=== PATIENT | female | born 1955 | race Caucasian/White ===

== ENCOUNTER 2016-06-24 00:01 | Outpatient (POV) | END 2016-06-24 00:02 | LOC: OUTPT 00:01 | PROVIDERS: ATTEND Otolaryngology | DX: H91.90 Unspecified hearing loss, unspecified ear (principal) | CPT/HCPCS: 92557 ==

== ENCOUNTER 2016-10-16 12:20 | Outpatient (CLI) ==
[2016-10-16 12:56] LABS: CREATININE 0.86 mg/dL (0.60-1.30)
--- NOTE | 2016-10-17 10:38 | MRI ---
EXAM: Brain and IAC MRI with and without contrast. HISTORY: Hearing loss right ear. Rule out acoustic neuroma. 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 COMPARISON: Head CT 04/22/2016, head CT 12/05/[address] 10/27/2008. TECHNIQUE: Multiplanar, multisequence MR images were acquired of the brain with thin sections throu gh the internal auditory canals before and after administration of intravenous contrast. FINDINGS: The midline structures are central and the craniocervical junction is unremarkable. The ventricles and sulci are normal in size and configuration. There are no abnormal extra-axial fluid collections. The brain parenchyma has no diffusion restriction to suggest acute hypoperfusion or infarction. Sma ll T2 hyperintensities are present in the supratentorial white matter, abdulkadir and left middle cerebell ar peduncle. This includes T2 hyperintensities in both anterior temporal lobes. These findings are compatible with mild leukomalacia. After administration of contrast, the brain parenchyma demonstr ates no enhancing lesions. The corpus callosum is normal in configuration. The pituitary gland is normal in size and has homogeneous contrast enhancement. The infundibulum is midline. There are no intraorbital masses. Paranasal sinuses are unremarkable. There are postsurgical changes of a left canal down mastoidecto my. There is a focal area of discontinuity in the tegmen tympani. This is covered by enhancing gran ulation tissue. There is mild enhancing mucosa or granulation tissue along the margins of the resec tion cavity. No abnormal enhancement is present in the dura of the left middle cranial fossa and th ere is no abnormal enhancement in the left internal auditory canals or labyrinthine structures. Ther e is opacification of a mildly enlarged left posterior mastoid air cell unchanged from prior studies . Mucosal thickening and fluid opacifies a moderately extensive number of the right mastoid air cells and there are thickened sclerotic mastoid septa. These findings have progressed compared to the rec ent head CT and are consistent with chronic right mastoid disease. There is no abnormal contrast en hancement in the internal auditory canals or labyrinthine structures. There is no vascular progressi on of the seventh and eighth cranial nerve complexes at the root entry zones. There is intermediate T1 and T2 signal in the left internal carotid artery petrous and cavernous seg ments to the supraclinoid segment suspicious for a high-grade stenosis or occlusion of the left venegas tid artery in the neck. A small flow void is identified in the left internal carotid artery in the region of the left ophthalmic artery that may represent retrograde filling and the supraclinoid left internal carotid artery is small and gradually enlarges to the bifurcation. The left posterior com municating artery is present. Flow voids are present in the left anterior and middle cerebral arter ies. The left anterior cerebral artery A1 segment is mildly hypoplastic. Both A2 segments are of n ormal caliber and both middle cerebral arteries are unremarkable. The anterior communicating artery is present. There is a dominant right posterior communicating artery. Flow voids are present in t he vertebral arteries, basilar artery and both posterior cerebral arteries and superior cerebellar a rteries. Dural venous sinuses are patent. The superior sagittal sinus preferentially drains into the right tr ansverse dural sinus, sigmoid sinus and internal jugular vein which are dominant to the left. IMPRESSION: 1. Moderately extensive chronic right mastoiditis. This has mildly progressed compared to the rece nt head CT from 04/22/2016. 2. Postsurgical changes of a left canal down mastoidectomy with enhancing granulation tissue along the margins of the surgical bed. 3. No evidence of vestibular schwannoma. 4. Mild chronic ischemic small vessel disease. No acute cerebral infarct. 5. Unexpected result: Findings suspicious for a high-grade stenosis or occlusion of the left carot id artery in the neck which may be chronic with collateral filling from the left posterior communica ting artery and anterior communicating artery and possible retrograde filling from the left ophthalm ic artery. Neck and ambler of Mehta CTA or MRA would be helpful to better define the anatomy.
== END 2016-10-16 12:21 | disposition home or self-care (01) ==
LOC: RAD 12:20
PROVIDERS: ATTEND Specialist
DX: H93.293 Other abnormal auditory perceptions, bilateral (principal)
CPT/HCPCS: 36415; 82565

== ENCOUNTER 2016-10-20 13:24 | Outpatient (CLI) ==
--- NOTE | 2016-10-20 14:35 | US ---
EXAM: Ultrasound bilateral carotid duplex HISTORY: Left carotid occlusion on MRI COMPARISON: MRI head 10/16/2016 TECHNIQUE: Sonographic and color Doppler evaluation of the carotids were performed. FINDINGS: The right carotid is patent in appearance with moderate atherosclerotic plaque visualized. The right ICA peak systolic velocity measures 130 m/sec which is elevated. The ICA / CCA peak systolic velocity ratio is 1.7 and ICA end-diastolic velocity is 60 m/sec. The left ICA is occluded. There is atherosclerotic disease at the carotid bulb. Vertebral arteries demonstrate antegrade flow bilaterally. IMPRESSION: 1. Left ICA occlusion consistent with MRI. 2. Moderate atherosclerotic disease of the right ICA with elevated velocities suggesting moderate, 50 - 69% stenosis.
== END 2016-10-20 13:25 | disposition home or self-care (01) ==
LOC: RAD 13:24
PROVIDERS: ATTEND Emergency Medicine
DX: I65.22 Occlusion and stenosis of left carotid artery (principal)

== ENCOUNTER 2016-11-12 06:27 | Outpatient (CLI) ==
--- NOTE | 2016-11-12 12:10 | ECHO2D ---
Date of Exam: 11/12/16 Ordering Physician: CARLA STEVE Reason for Echo: HYPERTENSION, SEVERE DYSLIPIDEMIA, SOB M-Mode Normal Adult Results LV Dimensions Normal Adult Results AoV Opening excursions >1.6 >1.6 LVEDD-base- 3.5-5.8 3.6 Ao root dimensions 2.0-3.7 2.9 LVESD-base- 3.1-4.6 L. Atrium dimensions 1.9-3.8 2.7 Post. Wall thickness 0.8-1.1 1.0 IV septum (thickness) 0.7-1.2 1.0 Post. Wall excursion 0.72-1.3 NORMAL Septal motion NORMAL Systolic motion R. Ventricular cavity 1.5-2.0 NORMAL LVEF 60% 59% Paradoxical septal wall motion NORMAL 2-D : NORMAL LEFT ATRIAL AND LEFT VENTRICLE CAVITIES--NORMAL LEFT VENTRICULAR CONTRACTILITY--MILD PERICARDIAL EFFUSION--NORMAL VALVES--NO THROMBUS M-MODE: MV: NORMAL AV: NORMAL TV: NORMAL PV: CHAMBER SIZE: NORMAL WALL MOTION: NORMAL PERICARDIUM: MILD PERICARDIAL EFFUSION INTERPRETATION: 1. NORMAL LEFT VENTRICULAR CONTRACTILITY 2. NORMAL VALVES 3. MILD PERICARDIAL EFFUSION MTDD
== END 2016-11-12 06:28 | disposition home or self-care (01) ==
LOC: CAR 06:27
PROVIDERS: ATTEND Internal Medicine
DX: R06.02 Shortness of breath (principal); I10 Essential (primary) hypertension; E78.5 Hyperlipidemia, unspecified

== ENCOUNTER 2016-11-13 06:23 | Outpatient (CLI) ==
[2016-11-13] MEDS ORDERED: ATROPINE SULFATE PFS ONE (07:01)
[2016-11-13] MEDS: DOBUTAMINE 250 ML IV ONE (07:18)
--- NOTE | 2016-11-16 12:26 | DOBSTECHO ---
Ordering Physician: CARLA STEVE Date of Test: 11/13/16 Reason for Examination: SOB, HYPERTENSION, DYSLIPIDEMIA Current Medications: CRESTOR, BABY ASA Height: 62" Weight: 157 LBS Target Heart Rate: 136/160 ST Segment Stage Time HR BPM BP mmhg Rhythm +/- Up Down Comments/Symptoms Control Sitting 92 130/78 SR X NONE Dobutamine 250mg/D5W 5cmg/KG/mn 10cmg/KG/mn 3" 129 125/70 SR X NONE 15cmg/KG/mn :32 144 120/70 SR X NONE 20cmg/KG/mn 25cmg/KG/mn 30cmg/KG/mn 35cmg/KG/mn 40cmg/KG/mn Time: 5" HR B/P Time: 8" HR B/P Time: HR B/P Recovery 115 120/72 Recovery 98 Recovery Total Time: 3:32 Maximum Heart Rate Reached: 144 Interpretation: 1. TEST NEGATIVE FOR ISCHEMIC ST-T WAVE CHANGES 2. NO CHEST PAIN OR DISCOMFORT 3. NORMAL LEFT VENTRICULAR CONTRACTILITY--RESTING AND WITH DOBUTAMINE INFUSION MTDD
--- NOTE | 2016-11-16 12:29 | ECHOSTRESS ---
Date of Exam: 11/13/16 Ordering Physician: CARLA STEVE Reason for Echo: SOB, HYPERTENSION, DYSLIPIDEMIA, DOBUTAMINE STRESS--NO ISCHEMIA M-Mode Normal Adult Results LV Dimensions Normal Adult Results AoV Opening excursions >1.6 LVEDD-base- 3.5-5.8 Ao root dimensions 2.0-3.7 LVESD-base- 3.1-4.6 L. Atrium dimensions 1.9-3.8 Post. Wall thickness 0.8-1.1 IV septum (thickness) 0.7-1.2 Post. Wall excursion 0.72-1.3 Septal motion Systolic motion R. Ventricular cavity 1.5-2.0 LVEF 60% Paradoxical septal wall motion 2-D: NORMAL LEFT VENTRICULAR CONTRACTILITY--RESTING AND DURING DOBUTAMINE INFUSION M-MODE: MV: AV: TV: PV: CHAMBER SIZE: WALL MOTION: NORMAL LEFT VENTRICULAR CONTRACTILITY--RESTING AND DURING DOBUTAMINE INFUSION PERICARDIUM: INTERPRETATION: 1. NORMAL LEFT VENTRICULAR CONTRACTILITY--RESTING AND DURING DOBUTAMINE INFUSION MTDD
== END 2016-11-13 06:24 | disposition home or self-care (01) ==
LOC: CAR 06:23
PROVIDERS: ATTEND Internal Medicine
DX: R06.02 Shortness of breath (principal); I10 Essential (primary) hypertension; E78.5 Hyperlipidemia, unspecified

== ENCOUNTER 2016-11-21 15:47 | Emergency (ER) ==
[2016-11-21 15:51] VITALS: TEMP 99.1; BMI 29.6
[2016-11-21 16:44] LABS: BASOPHILS % (AUTO) 0.5 % (0.0-3.0); EOSINOPHILS # (AUTO) 0.2 K/ul (0.0-0.7); EOSINOPHILS % (AUTO) 2.7 % (0.0-7.0); HEMATOCRIT 33.7 % (37.0-47.0); HEMOGLOBIN 10.9 g/dl (12.0-16.0); IMMATURE GRANULOCYTE % (AUTO) 0.8 % (0.0-5.0); LYMPHOCYTES # (AUTO) 2.1 K/uL (0.60-3.4); MEAN CORPUSCULAR HEMOGLOBIN 27.4 pg (27.0-31.0); MEAN CORPUSCULAR HGB CONC 32.3 (31.8-35.4); MEAN CORPUSCULAR VOLUME 84.7 fl (81.0-99.0); MONOCYTES # (AUTO) 0.9 K/uL (0.4-2.0); NEUTROPHILS # (AUTO) 5.2 K/ul (2.0-6.9); PLATELET COUNT 322 10^3/uL (140-440); RED BLOOD COUNT 3.98 10^6/ul (4.20-5.40); WHITE BLOOD COUNT 8.58 K/ul (4.6-10.2)
[2016-11-21 16:46] LABS: ABG PH 7.456 (7.35-7.45)
[2016-11-21 16:47] LABS: ABG BASE EXCESS 1 (-2.0-2.0); ABG HCO3 24.8 (22.0-26.0); ABG PCO2 35.2 mmHg (35-45); ABG TCO2 26 (22.0-28.0)
--- NOTE | 2016-11-21 17:02 | CT ---
EXAM: CT head without contrast HISTORY: Headache COMPARISON: CT head 04/22/2016 and MRI brain 10/16/2016 TECHNIQUE: Serial axial images of the brain were obtained from the skull base to the vertex without IV contrast. FINDINGS: The ventricles, cisterns and sulci demonstrate generalized volume loss.. The thornton-white matter junction is maintained. There is scattered low attenuation throughout the periventricular wh ite matter.No midline shift or mass is identified. There is no abnormal intra or extra-axial fluid collection. The paranasal sinuses and right mastoid air cells are clear. There are surgical change s of the left mastoid air cells. The osseous calvarium is intact. There is atherosclerotic disease of the visualized vessels. IMPRESSION: 1. No acute intracranial abnormality or hemorrhage. 2. Chronic microangiopathy and generalized volume loss. 3. Surgical changes of the left mastoid air cells.
[2016-11-21 17:17] VITALS: BP 121/76
[2016-11-21 17:24] LABS: ALANINE AMINOTRANSFERASE 17 U/L (12-78); ALBUMIN/GLOBULIN RATIO 0.88; ALKALINE PHOSPHATASE 72 U/L (53-141); ANION GAP 12.8; ASPARTATE AMINO TRANSFERASE 16 U/L (15-37); BLOOD UREA NITROGEN 11 mg/dL (7-18); BUN/CREATININE RATIO 13.09; CALCIUM 9.2 mg/dL (8.2-10.2); CARBON DIOXIDE 24 mmol/L (23-31); CHLORIDE 109 mmol/L (98-107); CREATINE KINASE 51 U/L; CREATININE 0.84 mg/dL (0.60-1.30); GLUCOSE 101 mg/dL (82-115); POTASSIUM 3.8 mmol/L (3.5-5.10); SODIUM 142 mmol/L (136-145); TOTAL PROTEIN 6.4 g/dL (5.8-8.1)
--- NOTE | 2016-11-21 18:01 | ED.PDOC ---
General ED Provider: Dr. MYLES LOO Chief Complaint: Weakness Stated Complaint: WEAKNESS Time Seen by Physician: 16:00 (AOX3 NO NEURO DEFICITS NOTED BUT B/P SYSTOLIC WAS 90'S ON ARRIVAL ) Mode of Arrival: Wheelchair Information Source: Patient, Family Exam Limitations: No limitations Primary Care Provider: CARLA STEVE Nursing and Triage Documentation Reviewed and Agree: Yes (SEEN WITH NURSES AND E//D TECH ) Neurological Complaint Exam - Weakness Complaint/Exam Last Known Well: 1 DAY Onset: Gradual Duration: 1 DAY Symptoms Are: Still present Timing: Constant Episodes Lasting: Hours Initial Severity: Mild Current Severity: Mild Character: Reports: Lightheaded, Weak Aggravating: Reports: None Alleviating: Reports: None Associated Signs and Symptoms: Denies: Nausea, Vomiting, Diaphoresis, Tinnitus, Chest pain, Short of air, Palpitations, Unsteady gait, GI blood loss, Visual changes, Decreased oral intake, Change in medication, Change in diet, OTC meds, Loss of balance Review of Systems - Review Of Systems Constitutional: Reports: Malaise, Weakness Eyes: Reports: No symptoms Ears, Nose, Mouth, Throat: Reports: No symptoms Respiratory: Reports: No symptoms Cardiac: Reports: No symptoms GI: Reports: No symptoms : Reports: No symptoms Musculoskeletal: Reports: No symptoms Skin: Reports: No symptoms Neurological: Reports: Headache Endocrine: Reports: No symptoms Hematologic/Lymphatic: Reports: No symptoms All Other Systems: Reviewed and Negative Past Medical History - Past Medical History Previously Healthy: Yes Endocrine: Reports: Dyslipidemia Cardiovascular: Reports: None Respiratory: Reports: None Hematological: Reports: None Gastrointestinal: Reports: None Genitourinary: Reports: None Neuro/Psych: Reports: None Musculoskeletal: Reports: None Cancer: Reports: None Last Menstrual Period: n/a - Surgical History General Surgical History: Reports: None - Family History Family History: Reports: None - Social History Smoking Status: Never smoker Hx Substance Use: No Alcohol Screening: None Physical Exam - Physical Exam Appearance: Well-appearing, No pain distress, Well-nourished Eyes: NADIA, EOMI, Conjunctiva clear ENT: Ears normal, Nose normal, Oropharynx normal Respiratory: Airway patent, Breath sounds clear, Breath sounds equal, Respirations nonlabored Cardiovascular: RRR, Pulses normal, No rub, No murmur GI/: Soft, Nontender, No masses, Bowel sounds normal, No Organomegaly Musculoskeletal: Normal strength, ROM intact, No edema, No calf tenderness Skin: Warm, Dry, Normal color Neurological: Sensation intact, Motor intact, Reflexes intact, Cranial nerves intact, Alert, Oriented Psychiatric: Affect appropriate, Mood appropriate Interpretation - Radiology Interpretation Radiology Interpretation By: Radiologist Radiology Results: No acute changes - Cut Lace Machine Operator Rate: Normal Rhythm: Sinus Ectopy: None - EKG Interpretation Rate: Normal Rhythm: Sinus Ectopy: None Pinson: NL ST Segment: Normal Re-Evaluation - Re-Evaluation Time of Re-Evaluation: 17:45 Status: Improved Vital Signs Stable: Yes Pain Level: 0 Appearance: NAD Lungs: Clear Skin: Warm and Dry Neuro: Alert and Oriented X3 CV: RRR Critical Care Note - Critical Care Note Total Time (mins): 0 Course - Course Hematology/Chemistry: 11/21/16 16:40 11/21/16 16:40 Orders, Labs, Meds: Lab Review 11/21/16 11/21/16 16:15 16:40 WBC 8.58 RBC 3.98 L Hgb 10.9 L Hct 33.7 L MCV 84.7 MCH 27.4 MCHC 32.3 RDW Coeff of [place] 15.4 H Plt Count 322 Immature Gran % (Auto) 0.8 Neut % (Auto) 61.0 Lymph % (Auto) 24.0 [place] % (Auto) 11.0 H Eos % (Auto) 2.7 Baso % (Auto) 0.5 Immature Gran # (Auto) 0.1 Neut # 5.2 Lymph # 2.1 [place] # 0.9 Eos # 0.2 Baso # 0.0 Puncture Site Lbrach O2 Saturation 93.0 L ABG pH 7.456 H ABG pCO2 35.2 ABG pO2 64.0 L ABG HCO3 24.8 ABG Total CO2 26 ABG Base Excess 1 FiO2 % 21.0 Sodium 142 Potassium 3.8 Chloride 109 H Carbon Dioxide 24 Anion Gap 12.8 BUN 11 Creatinine 0.84 Estimated GFR (MDRD) 69.00 BUN/Creatinine Ratio 13.09 Glucose 101 Lactic Acid 6.7 Calcium 9.2 Total Bilirubin 0.40 AST 16 ALT 17 Alkaline Phosphatase 72 Total Creatine Kinase 51 Troponin I < 0.0100 Total Protein 6.4 Albumin 3.0 L Globulin 3.4 Albumin/Globulin Ratio 0.88 Procalcitonin < 0.05 TSH 2.490 Free T4 1.08 Orders Category Date Time Status ABG DRAW REQUEST Stat CARDIO 11/21/16 16:15 Completed EKG-(ED ONLY) Stat CARDIO 11/21/16 16:14 Completed ABG Stat LAB 11/21/16 16:15 Completed BLOOD CULTURE Stat LAB 11/21/16 16:40 Received CBC W/ AUTO DIFF Stat LAB 11/21/16 16:40 Completed COMPREHENSIVE METABOLIC PANEL Stat LAB 11/21/16 16:40 Completed CREATINE KINASE Stat LAB 11/21/16 16:40 Completed FREE T4 (FREE THYROXINE) Stat LAB 11/21/16 16:40 Completed LACTIC ACID Stat LAB 11/21/16 16:40 Completed PROCALCITONIN Stat LAB 11/21/16 16:40 Completed THYROID STIMULATING HORMONE Stat LAB 11/21/16 16:40 Completed TROPONIN I Stat LAB 11/21/16 16:40 Completed URINALYSIS C & S IF INDICATED Stat LAB 11/21/16 16:[address] HEAD W/O CONTRAST Stat RADS 11/21/16 16:18 Completed Vital Signs: Temp Pulse Resp BP Pulse Ox 11/21/16 17:17 121/76 11/21/16 16:19 129/80 11/21/16 15:47 99.1 F 101 H 16 93/64 96 Departure - Departure Time of Disposition: 18:01 (REPEAT NEURO AT D/C WAS WNL RN PRESENT AT BEDSIDE ) Disposition: HOME SELF-CARE Discharge Problem: Weakness generalized Instructions: Weakness (ED) Condition: Good Pt referred to PMD for follow-up: No Additional Instructions: Please call your Family Physician as soon as possible to schedule a follow-up appointment. Allergies/Adverse Reactions: Allergies codeine Allergy (Intermediate, Verified 11/21/16 15:51) hallucinate Home Medications: Ambulatory Orders Aspirin [Aspir-Low] 81 mg PO DAILY 11/21/16 Rosuvastatin Calcium [Crestor] 20 mg PO DAILY 11/21/16
[2016-11-21 18:09] LABS: ADD URINE MICROSCOPIC NO; BILIRUBIN,URINE Negative (NEGATIVE); KETONES,URINE Negative (NEGATIVE); LEUKOCYTE ESTERASE ,URINE Negative (NEGATIVE); NITRITE,URINE Negative (NEGATIVE); PH,URINE 5.5 (5-9); PROTEIN,URINE Negative (NEGATIVE); URINE, BLOOD Negative (NEGATIVE)
== END 2016-11-21 18:16 | disposition home or self-care (01) ==
LOC: ED 15:47
DX: R53.1 Weakness (principal); R42 Dizziness and giddiness; E78.5 Hyperlipidemia, unspecified
CPT/HCPCS: 36415; 80053; 81001; 82550; 82803; 83605; 84145; 84439; 84443; 84484; 85025; 87040; 93005; 93010; 99283

== ENCOUNTER → 2017-01-08 | Outpatient (POV) | LOC: OUTPT 00:01 | PROVIDERS: ATTEND Otolaryngology | DX: H91.90 Unspecified hearing loss, unspecified ear (principal) ==

== ENCOUNTER 2017-06-22 14:21 | Emergency (ER) ==
[2017-06-22 14:31] VITALS: TEMP 98.1; BMI 28.9
--- NOTE | 2017-06-22 20:39 | ED.PDOC ---
General ED Provider: Dr. GISSELLE MOSHER Stated Complaint: Experiencing nose bleed since this afternoon Time Seen by Physician: 18:00 Mode of Arrival: Walk-In Information Source: Patient, Family Primary Care Provider: CARLA STEVE Nursing and Triage Documentation Reviewed and Agree: Yes Reviewed sepsis parameters & appropriate labs ordered?: Yes System Inflammatory Response Syndrome: Not Applicable Sepsis Protocol: For patient's 13 years and over: Temp is 96.8 and below OR 101 and greater Pulse >90 BPM Resp >20/minute Acutely Altered Mental Status Are patient's symptoms suggestive of a new infection, such as: -Pneumonia -Skin, Soft Tissue -Endocarditis -UTI -Bone, Joint Infection -Implantable Device -Acute Abdominal Infection -Wound Infection -Meningitis -Blood Stream Catheter Infection -Unknown System Inflammatory Response Syndrome: Not Applicable <GISSELLE MOSHER - Last Filed: 06/22/17 20:36> ED Provider: Dr. ANDREW BASS Primary Care Provider: CARLA STEVE Sepsis Protocol: For patient's 13 years and over: Temp is 96.8 and below OR 101 and greater Pulse >90 BPM Resp >20/minute Acutely Altered Mental Status Are patient's symptoms suggestive of a new infection, such as: -Pneumonia -Skin, Soft Tissue -Endocarditis -UTI -Bone, Joint Infection -Implantable Device -Acute Abdominal Infection -Wound Infection -Meningitis -Blood Stream Catheter Infection -Unknown <ADNREW BASS - Last Filed: 06/22/17 21:51> Chief Complaint: Nosebleed EENT Complaint Exam - Nasal Complaint/Exam Symptoms Are: Still present Timing: Intermittent Initial Severity: Moderate Current Severity: Mild Location: Left Character: Light bleeding Alleviating: Reports: Pressure, Position Associated Signs and Symptoms: Denies: Nasal congestion, Bruising, Nasal discharge, Foreign body Related History: Reports: Similar episode Nasal Surgical History: Reports: None Bleeding Present At: Left nostril Foreign Body Present: Yes Oropharynx Findings: Clots <GISSELLE MOSHER - Last Filed: 06/22/17 20:36> Review of Systems - Review Of Systems Constitutional: Reports: No symptoms Eyes: Reports: No symptoms Ears, Nose, Mouth, Throat: Reports: Nose discharge, Epistaxis Respiratory: Reports: No symptoms Cardiac: Reports: No symptoms GI: Reports: No symptoms : Reports: No symptoms Musculoskeletal: Reports: No symptoms Skin: Reports: No symptoms Neurological: Reports: No symptoms Endocrine: Reports: No symptoms Hematologic/Lymphatic: Reports: No symptoms All Other Systems: Reviewed and Negative <GISSELLE MOSHER - Last Filed: 06/22/17 20:36> Past Medical History - Past Medical History Previously Healthy: Yes Endocrine: Reports: Dyslipidemia Cardiovascular: Reports: None Respiratory: Reports: None Hematological: Reports: None Gastrointestinal: Reports: None Genitourinary: Reports: None Neuro/Psych: Reports: None Musculoskeletal: Reports: None Cancer: Reports: None Last Menstrual Period: menopause - Surgical History General Surgical History: Reports: None - Family History Family History: Reports: None - Social History Smoking Status: Never smoker Hx Substance Use: No Alcohol Screening: None <GISSELLE MOSHER - Last Filed: 06/22/17 20:36> Physical Exam - Physical Exam Appearance: Well-appearing (Turning case to Dr Bass at 2100 hrs for additional treatment) Ill-appearing: None Pain Distress: None Eyes: NADIA, EOMI, Conjunctiva clear ENT: Ears normal, Rhinorrhea Neck: Supple Respiratory: Airway patent, Breath sounds clear, Breath sounds diminished, Respirations nonlabored Cardiovascular: RRR, Pulses normal GI/: Soft, Nontender Musculoskeletal: Normal strength Skin: Warm, Dry Neurological: Sensation intact <GISSELLE MOSHER - Last Filed: 06/22/17 20:36> Procedures - Nasal Packing/Cautery Indications: Present: Anterior epistaxis Packing/Cautery Procedure: Left Medications Used: Yes: Other (Celox) Hemostasis Obtained: Yes (Was removed after 1 hour-had recurrent epistaxsis) <GISSELLE MOSHER - Last Filed: 06/22/17 20:36> - Nasal Packing/Cautery Packing/Cautery Procedure: Rhino rocket Suction Used: Yes Pressure Used to Control Bleeding: Yes Medications Used: Yes: Afrin <ANDREW BASS - Last Filed: 06/22/17 21:51> Critical Care Note - Critical Care Note Total Time (mins): 0 <GISSELLE MOSHER - Last Filed: 06/22/17 20:36> Course - Course Vital Signs: Temp Pulse Resp BP Pulse Ox 06/22/17 14:21 98.1 F 103 H 20 111/84 0 L <GISSELLE MOSHER - Last Filed: 06/22/17 20:36> - Course Hematology/Chemistry: 06/22/17 21:10 Orders, Labs, Meds: Lab Review 06/22/17 21:10 WBC 11.35 H RBC 4.98 Hgb 13.8 Hct 41.7 MCV 83.7 MCH 27.7 MCHC 33.1 RDW Coeff of Yanni 14.4 Plt Count 212 Immature Gran % (Auto) 0.4 Neut % (Auto) 69.9 Lymph % (Auto) 22.2 [place] % (Auto) 5.7 Eos % (Auto) 1.5 Baso % (Auto) 0.3 Immature Gran # (Auto) 0.0 Neut # 7.9 H Lymph # 2.5 [place] # 0.7 Eos # 0.2 Baso # 0.0 Orders Category Date Time Status CBC W/ AUTO DIFF Stat LAB 06/22/17 21:10 Completed PT WITH INR Stat LAB 06/22/17 21:10 Received PTT [PARTIAL THROMBOPLASTIN TIME] Stat LAB 06/22/17 21:10 Received Silver Nitrate Applicator MEDS 06/22/17 21:29 Discontinued 1 each TP .STK-MED ONE Vital Signs: Temp Pulse Resp BP Pulse Ox 06/22/17 14:21 98.1 F 103 H 20 111/84 0 L <ANDREW BASS - Last Filed: 06/22/17 21:51> Departure <GISSELLE MOSHER - Last Filed: 06/22/17 20:36> - Departure Time of Disposition: 21:47 Pt referred to PMD for follow-up: Yes Transfer Form Completed: Yes Disposition Discussed With: Patient <ANDREW BASS - Last Filed: 06/22/17 21:51> - Departure Disposition: HOME SELF-CARE Discharge Problem: Epistaxis Instructions: Nosebleed (ED) Condition: Stable Additional Instructions: Follow up with PCP in 3 days to have Nasal Rocket Removed Take Antibiotics as prescribed. Prescriptions: Amoxicillin/Potassium Clav [Augmentin 875-125 mg Tab] 1 tab PO Q12HR #14 tablet Allergies/Adverse Reactions: Allergies codeine Allergy (Intermediate, Verified 06/22/17 14:33) hallucinate Home Medications: Ambulatory Orders Aspirin [Aspir-Low] 81 mg PO DAILY 11/21/16 Rosuvastatin Calcium [Crestor] 20 mg PO DAILY 11/21/16 Clopidogrel Bisulfate [Clopidogrel] 75 mg PO DAILY 05/25/17 Amoxicillin/Potassium Clav [Augmentin 875-125 mg Tab] 1 tab PO Q12HR #14 tablet 06/22/17
[2017-06-22] MEDS ORDERED: SILVER NITRATE APPLICATOR TP ONE (21:29)
[2017-06-22] MEDS ORDERED: AFRIN NASAL SPRAY NAS STA (21:52)
[2017-06-22 22:01] VITALS: BP 140/76
== END 2017-06-22 22:01 | disposition home or self-care (01) ==
LOC: ED 14:21
DX: R04.0 Epistaxis (principal)
CPT/HCPCS: 36415; 85025; 85610; 85730; 99282

== ENCOUNTER 2017-06-24 11:53 | Emergency (ER) ==
[2017-06-24 11:58] VITALS: BP 138/84; TEMP 97.4; BMI 28.3
--- NOTE | 2017-06-24 12:52 | ED.PDOC ---
General ED Provider: Dr. EUGENIA GALE Chief Complaint: Nosebleed Stated Complaint: Nosebleed Time Seen by Physician: 12:15 Mode of Arrival: Walk-In Information Source: Patient Primary Care Provider: CARLA STEVE Nursing and Triage Documentation Reviewed and Agree: Yes Reviewed sepsis parameters & appropriate labs ordered?: Yes System Inflammatory Response Syndrome: Not Applicable Sepsis Protocol: For patient's 13 years and over: Temp is 96.8 and below OR 101 and greater Pulse >90 BPM Resp >20/minute Acutely Altered Mental Status Are patient's symptoms suggestive of a new infection, such as: -Pneumonia -Skin, Soft Tissue -Endocarditis -UTI -Bone, Joint Infection -Implantable Device -Acute Abdominal Infection -Wound Infection -Meningitis -Blood Stream Catheter Infection -Unknown Review of Systems - Review Of Systems Constitutional: Reports: No symptoms Ears, Nose, Mouth, Throat: Reports: Epistaxis All Other Systems: Reviewed and Negative Past Medical History - Past Medical History Previously Healthy: Yes Endocrine: Reports: Dyslipidemia Cardiovascular: Reports: None Respiratory: Reports: None Hematological: Reports: None Gastrointestinal: Reports: None Genitourinary: Reports: None Neuro/Psych: Reports: None Musculoskeletal: Reports: None Cancer: Reports: None Last Menstrual Period: N/A - Surgical History General Surgical History: Reports: None - Family History Family History: Reports: None - Social History Smoking Status: Never smoker Hx Substance Use: No Alcohol Screening: None - Immunizations Tetanus Shot up to Date: No Physical Exam - Physical Exam Appearance: Well-appearing ENT: Epistaxis (Ward rocket in place; no posterior phanynx blood visualized by me or 2X by RN) Neck: Supple Respiratory: Airway patent, Breath sounds clear Skin: Warm, Dry, Normal color Neurological: Sensation intact, Motor intact, Alert, Oriented Psychiatric: Affect appropriate, Mood appropriate Critical Care Note - Critical Care Note Total Time (mins): 10 Course - Course Vital Signs: Temp Pulse Resp BP Pulse Ox 06/24/17 11:56 97.4 F L 89 20 138/84 98 Departure - Departure Time of Disposition: 12:50 Disposition: HOME SELF-CARE Discharge Problem: Epistaxis Instructions: Nosebleed (ED) Condition: Stable Pt referred to PMD for follow-up: Yes (Follow up tomorrow with primary care as planned) IPMP verified?: No (No narcotic prescribed) Additional Instructions: Keep nasal pack in place and follow up with Dr. Steve as instructed on wednesday evening. Do not blow your nose; continue to not take your blood thinner medications as per plan by Primary Care (which you discussed with me). Allergies/Adverse Reactions: Allergies codeine Allergy (Intermediate, Verified 06/22/17 14:33) hallucinate Home Medications: Ambulatory Orders Aspirin [Aspir-Low] 81 mg PO DAILY 11/21/16 Rosuvastatin Calcium [Crestor] 20 mg PO DAILY 11/21/16 Clopidogrel Bisulfate [Clopidogrel] 75 mg PO DAILY 05/25/17 Amoxicillin/Potassium Clav [Augmentin Es-600 Suspension] 600 mg PO BID #70 ml Disposition Discussed With: Patient
== END 2017-06-24 13:15 | disposition home or self-care (01) ==
LOC: ED 11:53
DX: R04.0 Epistaxis (principal); Z79.899 Other long term (current) drug therapy
CPT/HCPCS: 99282

== ENCOUNTER 2017-09-15 09:39 | Outpatient (POV) | END 2017-09-15 17:00 | LOC: OUTPT 09:39 | PROVIDERS: ATTEND Otolaryngology | DX: H91.90 Unspecified hearing loss, unspecified ear (principal) | CPT/HCPCS: 92557 ==

== ENCOUNTER 2017-10-09 09:02 | Emergency (ER) ==
[2017-10-09 09:08] VITALS: BP 119/77; TEMP 98.3; BMI 34.7
--- NOTE | 2017-10-09 09:21 | ED.PDOC ---
General ED Provider: Dr. GISSELLE MOSHER Chief Complaint: Chest Pain Stated Complaint: Chest and Upper abdomen discomfort. Patient indicates last evening after eattin she started to experience mid-epigastric and mid sternal chest pain which radiated through to her back. States she was up and down all evening eventually capable of getting relaxed enough to lay down in bed and sleep from 1 AM until this morning. She prepared to take her morining meds and after swallowing apple sauce and taking 1 pill she had recurrence or her symptoms, She now has constant pain since and experiencing sensation she needs to belch. Very anxious. Time Seen by Physician: 09:20 Mode of Arrival: Walk-In Information Source: Patient, Family Exam Limitations: No limitations Primary Care Provider: CARLA STEVE Nursing and Triage Documentation Reviewed and Agree: Yes Reviewed sepsis parameters & appropriate labs ordered?: Yes System Inflammatory Response Syndrome: Not Applicable Sepsis Protocol: For patient's 13 years and over: Temp is 96.8 and below OR 101 and greater Pulse >90 BPM Resp >20/minute Acutely Altered Mental Status Are patient's symptoms suggestive of a new infection, such as: -Pneumonia -Skin, Soft Tissue -Endocarditis -UTI -Bone, Joint Infection -Implantable Device -Acute Abdominal Infection -Wound Infection -Meningitis -Blood Stream Catheter Infection -Unknown System Inflammatory Response Syndrome: Not Applicable GI Complaint Exam - Abdominal Pain Complaint/Exam Onset: Sudden Duration: 12 hrs Symptoms Are: Still present Timing: Constant Initial Severity: Severe Current Severity: Moderate Location of Pain: Epigastric Character: Reports: Sharp, Aching, Burning Aggravating: Reports: Food, Position, Eating Alleviating: Reports: Rest Associated Signs and Symptoms: Reports: Diaphoresis, Nausea Related History: Denies: Similar episode AAA Risk Factors: Reports: None Ectopic Risk Factors: Reports: None Ovarian Torsion Risk Factors: Reports: None Surgical Obstruction Risk Factors: Reports: None Adnexal Exam: Present: Normal Findings Differential Diagnoses: Gastroenteritis, GB, PUD, Other (GERD/Esophageal spasm) Review of Systems - Review Of Systems Constitutional: Reports: No symptoms, Diaphoresis, Loss of appetite Eyes: Reports: No symptoms Ears, Nose, Mouth, Throat: Reports: No symptoms Respiratory: Reports: No symptoms Cardiac: Reports: No symptoms GI: Reports: Abdominal pain, Difficulty swallowing, Poor appetite, Poor fluid intake : Reports: No symptoms Musculoskeletal: Reports: No symptoms Skin: Reports: No symptoms Neurological: Reports: No symptoms Endocrine: Reports: No symptoms Hematologic/Lymphatic: Reports: No symptoms All Other Systems: Reviewed and Negative Past Medical History - Past Medical History Previously Healthy: Yes Endocrine: Reports: Dyslipidemia Cardiovascular: Reports: None Respiratory: Reports: None Hematological: Reports: None Gastrointestinal: Reports: None Genitourinary: Reports: None Neuro/Psych: Reports: None Musculoskeletal: Reports: None Cancer: Reports: None Last Menstrual Period: N/A - Surgical History General Surgical History: Reports: None - Family History Family History: Reports: None - Social History Smoking Status: Never smoker Hx Substance Use: No Alcohol Screening: None - Immunizations Tetanus Shot up to Date: Yes Physical Exam - Physical Exam Appearance: Ill-appearing, Obese Ill-appearing: Moderate Pain Distress: Moderate Eyes: NADIA, EOMI, Conjunctiva clear ENT: Ears normal, Oropharynx normal Respiratory: Airway patent, Breath sounds clear, Breath sounds equal Cardiovascular: RRR, Pulses normal, No rub, No murmur GI/: Soft, Bowel sounds normal, No Organomegaly, Tender (midepigastrium), Bowel sounds hypoactive Musculoskeletal: Normal strength, ROM intact, No edema, No calf tenderness Skin: Warm, Dry, Normal color Neurological: Sensation intact, Motor intact, Reflexes intact, Cranial nerves intact, Alert, Oriented Psychiatric: Affect appropriate, Mood appropriate Interpretation - Radiology Interpretation Radiology Interpretation By: Radiologist Radiology Results: Negative Exam Interpreted: CXR Critical Care Note - Critical Care Note Total Time (mins): 30 Course - Course Hematology/Chemistry: 10/09/17 10:00 10/09/17 10:00 Orders, Labs, Meds: Lab Review 10/09/17 10/09/17 10/09/17 10:00 10:00 10:00 WBC 12.95 H RBC 4.90 Hgb 13.0 Hct 41.2 MCV 84.1 MCH 26.5 L MCHC 31.6 L RDW Coeff of Yanni 13.7 Plt Count 200 Immature Gran % (Auto) 0.2 Neut % (Auto) 75.1 Lymph % (Auto) 16.7 [place] % (Auto) 5.3 Eos % (Auto) 2.2 Baso % (Auto) 0.5 Immature Gran # (Auto) 0.0 Neut # (Auto) 9.7 H Lymph # (Auto) 2.2 [place] # (Auto) 0.7 Eos # (Auto) 0.3 Baso # (Auto) 0.1 Sodium 144 Potassium 4.5 Chloride 106 Carbon Dioxide 29 Anion Gap 13.5 BUN 10 Creatinine 0.87 Estimated GFR (MDRD) 66.00 BUN/Creatinine Ratio 11.49 Glucose 103 Calcium 10.1 Total Bilirubin 0.3 AST 21 ALT 21 Alkaline Phosphatase 108 Troponin I < 0.0100 Total Protein 7.8 Albumin 3.7 Globulin 4.1 Albumin/Globulin Ratio 0.90 Orders Category Date Time Status EKG-(ED ONLY) Stat CARDIO 10/09/17 09:46 Completed CBC W/ AUTO DIFF Stat LAB 10/09/17 10:00 Completed CMP [COMPREHENSIVE METABOLIC PANEL] Stat LAB 10/09/17 10:00 Completed TROPONIN I Stat LAB 10/09/17 10:00 Completed Mag-Al Plus//Lidocaine [Gi Cocktail] MEDS 10/09/17 09:45 Discontinued 30 ml PO ONCE STA CHEST, 1V AP ONLY Stat RADS 10/09/17 09:46 Completed Medications Discontinued Medications Generic Name Dose Route Start Last Admin Trade Name Freq PRN Reason Stop Dose Admin Al Hydroxide/Mg Hydroxide 30 ml 10/09/17 09:45 10/09/17 10:08 Gi Cocktail PO 10/09/17 09:46 30 ml ONCE STA Administration Vital Signs: Temp Pulse Resp BP Pulse Ox 10/09/17 09:03 98.3 F 82 20 119/77 98 Departure - Departure Time of Disposition: 12:15 Disposition: HOME SELF-CARE Discharge Problem: Esophageal spasm, GERD (gastroesophageal reflux disease) Discharge Problem: (Ruled Out): GERD with apnea Instructions: Gastroesophageal Reflux Disease (ED), Esophageal Spasm (ED) Condition: Good Pt referred to PMD for follow-up: Yes IPMP verified?: No Additional Instructions: Take Mylanta 10 ml after each meal and bed time for relief of indigestion Begin Omperazole 20 ml twice daily Remain on soft , bland diet Prescriptions: Omeprazole [Prilosec] 20 mg PO BIDAC #60 capsule.dr Allergies/Adverse Reactions: Allergies codeine Allergy (Intermediate, Verified 10/09/17 09:08) hallucinate Home Medications: Ambulatory Orders Aspirin [Aspir-Low] 81 mg PO DAILY 11/21/16 Rosuvastatin Calcium [Crestor] 20 mg PO DAILY 11/21/16 Clopidogrel Bisulfate [Clopidogrel] 75 mg PO DAILY 05/25/17 Omeprazole [Prilosec] 20 mg PO BIDAC #60 capsule. 10/09/17 Disposition Discussed With: Patient, Family Time Seen by Provider: 10/09/17 09:20 Objective: Vitals: T=98.3 F, P=82, R=20, XI=813/77, SPO2=98 HEENT: [] Neck: [] Lungs: [] CVS: [] Abdomen: [] Extremities: [] Neurological: [] Skin: [] Lab/Tests/Diagnostic Imaging: [] Patient administered GI cocktail with complete resolution of her symptoms/Ready for discharge
[2017-10-09] MEDS ORDERED: GI COCKTAIL PO STA (09:45)
--- NOTE | 2017-10-09 10:26 | DI ---
EXAM: Single view of the chest. History: Chest pain. Comparison: Chest radiograph 03/27/2008 Findings: Heart size is within normal limits. No focal consolidation. Calcified granulomas again s een within the thorax. No appreciable pleural fluid and no pneumothorax. No acute osseous abnormali ties. Impression: No acute cardiopulmonary process. No change compared to the prior study.
== END 2017-10-09 12:34 | disposition home or self-care (01) ==
LOC: ED 09:02
DX: K22.4 Dyskinesia of esophagus (principal); K21.9 Gastro-esophageal reflux disease without esophagitis; R07.9 Chest pain, unspecified
CPT/HCPCS: 36415; 80053; 84484; 85025; 93005; 93010; 99284

== ENCOUNTER 2017-12-03 09:29 | Outpatient (CLI) ==
--- NOTE | 2017-12-03 15:31 | MRI ---
EXAM: Brain MRI with and without contrast. HISTORY: Ataxia. COMPARISON: Head CT 11/21/2016 and brain MRI 10/16/2016. TECHNIQUE: Multiplanar, multisequence MR images were acquired of the brain before and after administ ration of intravenous contrast. FINDINGS: The midline structures are central and the craniocervical junction is unremarkable. The v entricles and sulci are normal in size and configuration. There are no abnormal extra-axial fluid co llections. There is a small area of mild diffusion restriction with faint bright B 1000 and dark ADC signal and faint bright FLAIR signal in the right abdulkadir that measures 6 mm AP by 3.5 mm TX. This is consistent w ith a small area of late acute to subacute ischemia. Patchy T2 hyperintensities are present in the s upratentorial white matter including both anterior temporal lobes and the abdulkadir compatible mild leukom alacia unchanged from previously. There is no abnormal dark gradient echo signal. After administrat ion of gadolinium, no enhancing lesions are identified. The corpus callosum is normal in configurati on. The pituitary gland is normal in size with homogeneous contrast enhancement and the infundibulum is midline. There are no intraorbital masses. Minor hyperostosis frontalis interna is present. Minor scattered mucosal thickening is present in the ethmoid air cells that is within normal variation. There is mil d mucosal thickening and a small amount of fluid in a mild number of the right mastoid air cells whic h have thickened sclerotic septa compatible with mild chronic right mastoiditis.. There are stable p ostoperative changes of a previous partial left canal down mastoidectomy. 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 The residual left mastoid air cells have thickened scle rotic septa and enhancing enhancing granulation tissue. There is no abnormal contrast enhancement in the internal auditory canals or labyrinthine structures. There is intermediate to bright T1 and intermediate T2 signal in the left internal carotid artery fro m the distal cervical segment to the clinoid segment compatible with a high-grade stenosis or occlusi on of the left carotid artery in the neck. Dural venous sinuses are patent. IMPRESSION: 1. Unexpected result. Small 6 mm x 3.5 mm area of late acute to subacute ischemia right abdulkadir. 2. Stable mild chronic ischemic small vessel disease. 3. Stable postoperative changes of a prior left partial canal down mastoidectomy with fluid filling an enlarged posterior left mastoid air cell that may represent sequela of prior left coalescent masto iditis. Enhancing granulation tissue and septal thickening is present in the residual left mastoid a ir cells compatible with enhancing granulation tissue. 4. Mild right mastoiditis. [facility] will contact the referring clinician.
== END 2017-12-03 09:30 | disposition home or self-care (01) ==
LOC: RAD 09:29
PROVIDERS: ATTEND Internal Medicine
DX: R27.0 Ataxia, unspecified (principal); R42 Dizziness and giddiness
CPT/HCPCS: 36415; 82565

== ENCOUNTER 2017-12-09 06:40 | Outpatient (CLI) ==
--- NOTE | 2017-12-09 13:12 | CT ---
EXAM: CTA of the neck was performed with contrast TECHNIQUE: Helical axial CTA of the neck was performed with contrast with multiplanar reconstruction s and separate work station 3-D renderings. COMPARISON: Brain MRI from 12/03/2017 HISTORY: Recent small pontine infarction with ataxia FINDINGS: There is no acute soft tissue abnormality. There are no neck masses or pathologic lymph nod es. The thyroid gland is somewhat heterogeneous. There are no acute osseous abnormalities. There is moderate degenerative change in the cervical spine. There is old granulomatous disease in the chest. There is some biapical scarring and/or atelectasis. Aorta: There is no significant calcific atherosclerosis of the visualized aorta with no evidence for dissection or aneurysm. The left subclavian artery and brachiocephalic artery are widely patent. Th ere is a focal calcification seen associated with the brachiocephalic artery. There is a bovine orig in of the left common carotid artery. The right subclavian artery is occluded. There is minimal rec onstitution of the right subclavian artery via muscular collaterals. Right carotid artery: The origin of the right common carotid artery off of the brachiocephalic is wi raquel patent. The right common carotid artery as well as the right carotid bifurcation and the cervic al right internal carotid artery are all widely patent. There are 2 overlapping right common carotid and internal carotid artery stents which appear widely patent. There is no evidence for aneurysm or f ocal stenosis or dissection. Right vertebral artery: There is a moderate stenosis of the origin of the right vertebral artery due to calcific atherosclerosis. The course of the right vertebral artery in the neck is normal with no focal stenosis or dissection or aneurysm. Left carotid artery: There is a bovine origin of the left common carotid artery. The left common ca rotid artery in the neck is widely patent. There is heavy calcification of the left carotid bifurcat ion with occlusion of the left internal carotid artery. Left vertebral artery: There is modest calcific atherosclerosis near the origin of the left vertebra l artery which is modestly narrowed. The course of the left vertebral artery in the neck is unremark able with no focal stenosis or aneurysm or dissection. The right vertebral artery is dominant. Limited evaluation of the intracranial circulation demonstrates the vertebral basilar system to appea r to be widely patent. There is occlusion of the left internal carotid artery which is minimally rec onstituted via a posterior communicating artery and retrograde flow in the left ophthalmic artery. T here is calcific atherosclerosis of both siphons. IMPRESSION: 1. Occlusion of the left internal carotid artery at the bifurcation as described. There is trace re constitution of the intracranial left internal carotid artery as noted above. If clinically indicated CT angiogram of the head may be of benefit. 2. Widely patent right carotid with overlapping carotid stents which demonstrate no significant intr astent stenosis. 3. Modest stenosis of the origins of the bilateral vertebral arteries which are otherwise widely pat ent. 4. Occlusion of the right subclavian artery with minimal reconstitution via muscular collaterals. 5. Bovine origin of the left common carotid artery which is a normal variant.
--- NOTE | 2017-12-10 10:42 | ECHO2D ---
Date of Exam: 12/09/17 Ordering Physician: DR. CARLA STEVE Room #: OP Reason for Echo: CTA, CAROTID OCCLUSIONS M-Mode Normal Adult Results LV Dimensions Normal Adult Results AoV Opening excursions >1.6 >1.6 LVEDD-base- 3.5-5.8 3.9 Ao root dimensions 2.0-3.7 2.7 LVESD-base- 3.1-4.6 L. Atrium dimensions 1.9-3.8 3.4 Post. Wall thickness 0.8-1.1 1.0 IV septum (thickness) 0.7-1.2 0.9 Post. Wall excursion 0.72-1.3 NORMAL Septal motion NORMAL Systolic motion R. Ventricular cavity 1.5-2.0 NORMAL LVEF 60% 65% Paradoxical septal wall motion NORMAL 2-D : MITRAL VALVE PROLAPSE NOTED LEFT PARASTERNAL LONG AXIS AND APICAL FOUR CHAMBER VIEW--NORMAL LEFT VENTRICULAR CONTRACTILITY--NORMAL LEFT VENTRICLE AND LEFT ATRIAL SIZE M-MODE: MV: MITRAL VALVE PROLAPSE NOTED AV: NORMAL TV: NORMAL PV: CHAMBER SIZE: NORMAL WALL MOTION: NORMAL PERICARDIUM: NORMAL INTERPRETATION: 1. MITRAL VALVE PROLAPSE LATE SYSTOLIC 2. NORMAL LEFT VENTRICLE CONTRACTILITY 3. NORMAL LEFT VENTRICLE AND LEFT ATRIAL SIZE MTDD
== END 2017-12-09 06:41 | disposition home or self-care (01) ==
LOC: CAR 06:40
PROVIDERS: ATTEND Internal Medicine
DX: I65.23 Occlusion and stenosis of bilateral carotid arteries (principal); R06.02 Shortness of breath
CPT/HCPCS: 36415; 82565

== ENCOUNTER 2018-06-02 13:00 | Outpatient (RCR) | END 2018-06-13 23:59 | PROVIDERS: ATTEND Internal Medicine | DX: M62.81 Muscle weakness (generalized) (principal) ==

== ENCOUNTER 2018-10-18 10:16 | Emergency (ER) ==
[2018-10-18 10:27] VITALS: BP 109/85; TEMP 98.2
[2018-10-18 10:34] VITALS: BMI 29.5
--- NOTE | 2018-10-18 10:47 | ED.PDOC ---
General ED Provider: Dr. GISSELLE MOSHER Chief Complaint: Dizziness Stated Complaint: Dizziness and Headache. States yesterday afternoon she experienced severe dizziness when the room started spinning. Had been doing well earlier in the day States the dizziness is a little better but feels weak and has pain to left side of head. States her chin and face feels funny. Also c/ o forehead rash. Time Seen by Physician: 10:25 Mode of Arrival: Walk-In Information Source: Patient Exam Limitations: No limitations Primary Care Provider: CARLA STEVE Nursing and Triage Documentation Reviewed and Agree: Yes Does patient meet sepsis criteria?: No System Inflammatory Response Syndrome: Not Applicable Sepsis Protocol: For patient's 13 years and over: Temp is 96.8 and below OR 101 and greater Pulse >90 BPM Resp >20/minute Acutely Altered Mental Status Are patient's symptoms suggestive of a new infection, such as: -Pneumonia -Skin, Soft Tissue -Endocarditis -UTI -Bone, Joint Infection -Implantable Device -Acute Abdominal Infection -Wound Infection -Meningitis -Blood Stream Catheter Infection -Unknown Review of Systems - Review Of Systems Constitutional: Reports: No symptoms Eyes: Reports: No symptoms Ears, Nose, Mouth, Throat: Reports: No symptoms Respiratory: Reports: No symptoms Cardiac: Reports: No symptoms GI: Reports: No symptoms : Reports: No symptoms Musculoskeletal: Reports: No symptoms Skin: Reports: No symptoms Neurological: Reports: Anxiety, Other (vertigo) Endocrine: Reports: No symptoms Hematologic/Lymphatic: Reports: No symptoms All Other Systems: Reviewed and Negative Past Medical History - Past Medical History Previously Healthy: Yes Endocrine: Reports: Dyslipidemia Cardiovascular: Reports: None Respiratory: Reports: None Hematological: Reports: None Gastrointestinal: Reports: None Genitourinary: Reports: None Neuro/Psych: Reports: None Musculoskeletal: Reports: None Cancer: Reports: None Last Menstrual Period: none - Surgical History General Surgical History: Reports: None - Family History Family History: Reports: None - Social History Smoking Status: Never smoker Hx Substance Use: No Alcohol Screening: None Physical Exam - Physical Exam Appearance: Ill-appearing, Thin Ill-appearing: Mild Pain Distress: None Eyes: NADIA, EOMI, Conjunctiva clear Interpretation - Tower Director Rate: Normal Rhythm: Sinus Ectopy: None - EKG Interpretation Time of EKG #1: 10:59 Physician Notification - Case Discussed Physician Notified: Dr Steve-advised of findings. Req patient follow up office Time of Notification: 13:00 (Office to schedule Outpt Carotid CTA before follow up ) Critical Care Note - Critical Care Note Total Time (mins): 60 Course - Course Hematology/Chemistry: 10/18/18 10:55 10/18/18 10:55 Orders, Labs, Meds: Lab Review 10/18/18 10/18/18 10:55 10:55 WBC 9.67 RBC 5.36 Hgb 14.0 Hct 44.8 MCV 83.6 MCH 26.1 L MCHC 31.3 L RDW Coeff of [place] 14.3 Plt Count 197 Immature Gran % (Auto) 0.3 Neut % (Auto) 64.5 Lymph % (Auto) 24.1 [place] % (Auto) 6.9 Eos % (Auto) 3.8 Baso % (Auto) 0.4 Immature Gran # (Auto) 0.0 Neut # (Auto) 6.2 Lymph # (Auto) 2.3 [place] # (Auto) 0.7 Eos # (Auto) 0.4 Baso # (Auto) 0.0 ESR 18 Sodium 141.1 Potassium 4.13 Chloride 102.7 Carbon Dioxide 29.6 Anion Gap 12.93 BUN 7.8 Creatinine 0.83 Estimated GFR (MDRD) 70.00 BUN/Creatinine Ratio 9.39 Glucose 97.7 Calcium 10.06 Total Bilirubin 0.45 AST 36.3 H ALT 33.6 Alkaline Phosphatase 117.7 Total Protein 8.15 Albumin 5.00 Globulin 3.15 Albumin/Globulin Ratio 1.58 Orders Category Date Time Status EKG-(ED ONLY) Stat CARDIO 10/18/18 10:47 Completed CBC W/ AUTO DIFF Stat LAB 10/18/18 10:55 Completed CMP [COMPREHENSIVE METABOLIC PANEL] Stat LAB 10/18/18 10:55 Completed ESR Stat LAB 10/18/18 10:55 Completed Meclizine HCl [Antivert] MEDS 10/18/18 11:46 Discontinued 25 mg PO ONCE STA CT HEAD W/O CONTRAST Stat RADS 10/18/18 11:45 Completed ULTRASOUND DOPPLER CAROTID [U/S DOPPLER CAROTID] Stat RADS 10/18/18 11:47 Completed Medications Discontinued Medications Generic Name Dose Route Start Last Admin Trade Name Freq PRN Reason Stop Dose Admin Meclizine HCl 25 mg 10/18/18 11:46 10/18/18 12:25 Antivert PO 10/18/18 11:47 25 mg ONCE STA Administration Vital Signs: Temp Pulse Resp BP Pulse Ox 10/18/18 10:16 98.2 F 94 H 20 109/85 99 Departure - Departure Time of Disposition: 12:50 Disposition: DISCH W/I HOSP TO [facility] Discharge Problem: Dizziness, Vertigo, Arteriosclerotic vascular disease, Carotid artery disease Instructions: Vertigo (ED) Condition: Good Pt referred to PMD for follow-up: Yes IPMP verified?: No Additional Instructions: Change positions slowly Take meclizine every 6-8 hrs as needed for dizziness Darell Called Dr Steve Office to arrange for outpatient Carotid CTA-office will call and arrange to get precertified Remain on Plavix and Aspirin tx See PCP next week Prescriptions: Meclizine HCl [Antivert] 25 mg PO TID PRN #15 tablet PRN Reason: Dizziness or Vertigo Allergies/Adverse Reactions: Allergies codeine Allergy (Intermediate, Verified 10/18/18 10:23) hallucinate Home Medications: Ambulatory Orders Aspirin [Aspir-Low] 81 mg PO DAILY 11/21/16 Rosuvastatin Calcium [Crestor] 20 mg PO DAILY 11/21/16 Clopidogrel Bisulfate [Clopidogrel] 75 mg PO DAILY 05/25/17 Neomycin/Polymyxin B/Hc Otic [Cortisporin Otic Susp] 10 ml OT DIRECTED Meclizine HCl [Antivert] 25 mg PO TID PRN #15 tablet 10/18/18 Disposition Discussed With: Patient, Family
[2018-10-18] MEDS ORDERED: ANTIVERT PO STA (11:46)
--- NOTE | 2018-10-18 12:35 | CT ---
EXAM: CT of the head without contrast History: Dizziness. Comparison: Head CT 11/21/2016 Technique: Multiplanar CT images through the head were obtained without the administration of IV con trast Findings: The visualized paranasal sinuses are clear in general. Small right mastoid effusion. Pos tsurgical changes of left mastoidectomy again noted. Intracranially the ventricular and cisternal spaces are normal in size, shape and configuration for a patient of this age. No dominant mass or midline shift. No hydrocephalous. No acute intracranial hemorrhage or abnormal extraaxial fluid collections. Impression: No acute intracranial process.
--- NOTE | 2018-10-18 12:39 | US ---
EXAM: Bilateral carotid artery Doppler History: Profound dizziness. Comparison: CTA of the neck 12/09/2017 Technique: Multiple sonographic images through the bilateral internal carotid arteries were obtained . Color duplex Doppler was used to interrogate vascular flow. Findings: Known complete occlusion of the left internal carotid artery. Bilateral vertebral arteries are patent and demonstrates antegrade flow. Stent is seen within the right carotid artery. There is increased peak systolic velocity within the right internal carotid artery measuring 261 cm/sec. The right ICA/cca PSV ratio is severely elevated at 4.3. Impression: 1. Stable known complete occlusion of the left internal carotid artery. 2. Patent stent within the right carotid artery. 3. Severely increased peak systolic velocity within the right internal carotid artery suggesting gre ater than or equal to 70% hemodynamic stenosis.
== END 2018-10-18 13:08 | disposition swing bed (61) ==
LOC: ED 10:16
DX: R42 Dizziness and giddiness (principal); I25.10 Atherosclerotic heart disease of native coronary artery without angina pectoris; R51 Headache; R21 Rash and other nonspecific skin eruption; E78.5 Hyperlipidemia, unspecified
CPT/HCPCS: 36415; 80053; 85025; 85651; 93005; 93010; 99283